=== PATIENT | female | born 1985 | race Caucasian/White ===

== ENCOUNTER 2019-09-13 17:55 | Emergency (ER) | payer SELFPAY ==
[2019-09-13 19:09] LABS: #Basophils 0.1 thou/uL (0.0-0.2); #Eosinphils 0.2 thou/uL (0.0-0.7); #Lymphocytes 3.4 thou/uL (1.20-3.40); #Monocytes 0.8 thou/uL (0.11-0.59); #Neutrophils 4.7 thou/uL (1.40-6.50); %Basophils 1.1 % (0.0-1.0); %Eosinophils 1.9 % (0.0-10.0); %Monocytes 8.4 % (0.0-10.0); %Neutrophils 51.7 % (42.0-75.0); Mean Corpuscular HGB CONC 33.6 g/dL (32.0-36.0); Mean Corpuscular Hemoglobin 30.8 pg (27.0-31.0); Mean Corpuscular Volume 91.7 fL (78.0-98.0); Mean Platelet Volume 8.3 fL (7.4-10.4); Platelet Count 311 thou/uL (130-400); RBC Distribution Width 13.4 % (11.5-14.5); Red Blood Cell (RBC) Count 4.54 mill/uL (4.20-5.40); White Blood Cell (WBC) Count 9.1 thou/uL (4.8-10.8)
[2019-09-13 19:27] LABS: BHCG - Serum Indeterminate (NEGATIVE); Pregs Control Background? CLEAR/WHITE (CLR/WHITE); Pregs Control Bar Appear? YES (CONTROL BAR)
[2019-09-13 19:29] LABS: ALT (SGPT) 11 U/L (8-55); AST (SGOT) 11 U/L (5-34); Albumin 3.9 g/dL (3.5-5.0); Alkaline Phosphatase 77 U/L (40-110); Anion Gap 9 mmol/L (10-20); BUN (Urea Nitrogen) 7 mg/dL (7.0-18.7); Bilirubin, Total 0.4 mg/dL (0.2-1.2); Calc. Creatinine Clearance 0 mL/min (70-130); Calcium 9.3 mg/dL (7.8-10.44); Carbon Dioxide 26 mmol/L (22-29); Chloride 106 mmol/L (98-107); Estimated GFR-MDRD Greater than 90; Globulin 3.2 g/dL (2.4-3.5); Glucose 103 mg/dL (70-105); Lipase 26 U/L (8-78); Potassium 3.5 mmol/L (3.5-5.1); Protein, Total 7.1 g/dL (6.0-8.3); Sodium 137 mmol/L (136-145)
--- NOTE | 2019-09-13 19:38 | RAD ---
EXAM: CHEST ONE VIEW HISTORY: Chest pain with nausea. COMPARISON: None FINDINGS: The cardiac silhouette and pulmonary vasculature is within normal limits. The lungs are clear. The os seous structures are intact. IMPRESSION: No acute cardiopulmonary process.
== END 2019-09-13 20:05 | disposition home or self-care (01) ==
LOC: ERS 17:55
DX: R07.2 Precordial pain (principal); F17.210 Nicotine dependence, cigarettes, uncomplicated
CPT/HCPCS: 36415; 71045; 80053; 83690; 84484; 84703; 85025; 93005; 94760